=== PATIENT | female | born 1970 | race Caucasian/White ===

== ENCOUNTER 2025-01-16 14:11 | Emergency (ER) | payer OTHER ==
[~2025-01-16] VITALS: Wt 65.8 kg
[2025-01-16] MEDS ORDERED: TRAMADOL HCL50 MG PO (17:39)
== END 2025-01-16 17:56 | disposition home or self-care (01) ==
LOC: ED 14:11
DX: S62.307A Unspecified fracture of fifth metacarpal bone, left hand, initial encounter for closed fracture (principal); S00.81XA Abrasion of other part of head, initial encounter; Z88.5 Allergy status to narcotic agent; Z88.8 Allergy status to other drugs, medicaments and biological substances; X58.XXXA Exposure to other specified factors, initial encounter; Y93.89 Activity, other specified; Y92.89 Other specified places as the place of occurrence of the external cause; Y99.8 Other external cause status

== ENCOUNTER 2025-01-21 16:11 | Emergency (ER) | payer OTHER ==
[~2025-01-21] VITALS: Ht 170.1 cm; Wt 61.2 kg
[~2025-01-21 16:11] MED LIST: TRAMADOL HCL50 MG PO
== END 2025-01-21 18:35 | disposition home or self-care (01) ==
LOC: ED 16:11
DX: S20.219A Contusion of unspecified front wall of thorax, initial encounter (principal); Z88.5 Allergy status to narcotic agent; Z88.8 Allergy status to other drugs, medicaments and biological substances; V89.2XXA Person injured in unspecified motor-vehicle accident, traffic, initial encounter; Y93.89 Activity, other specified; Y92.410 Unspecified street and highway as the place of occurrence of the external cause; Y99.8 Other external cause status

== ENCOUNTER → 2025-02-21 | Outpatient (CLI) | payer OTHER | END | disposition home or self-care (01) | LOC: ORTHO 02:56 | PROVIDERS: ATTEND Orthopaedic Surgery | DX: S62.316A Displaced fracture of base of fifth metacarpal bone, right hand, initial encounter for closed fracture (principal); M19.041 Primary osteoarthritis, right hand; X58.XXXA Exposure to other specified factors, initial encounter; Y93.89 Activity, other specified; Y92.89 Other specified places as the place of occurrence of the external cause; Y99.8 Other external cause status ==